=== PATIENT | male | born 1975 | race Caucasian/White ===

== ENCOUNTER 2020-02-02 01:23 | Day surgery (SDC) | payer MEDICAID, OTHER ==
[~2020-02-02] VITALS: Ht 172.7 cm; Wt 118.0 kg
--- NOTE | 2020-02-02 01:49 | NUR ---
PT HERE FOR N/V AND ALL OVER ABD PAIN THAT STARTED TONIGHT. PT DENIES AND MEDICAL PROBLEMS. VSS. WAITING FOR ERP TO EVALUATE. CALL LIGHT IN REACH
[2020-02-02] MEDS ORDERED: ONDANSETRON 2MG/ML, 2ML IVPush ONE (02:00)
[2020-02-02] MEDS ORDERED: MORPHINE SULFATE 4 MG/ML, 1ML IVPush PRN (02:00)
[2020-02-02] MEDS ORDERED: SODIUM CHLORIDE 0.9% 1,000ML IVBOLUS ONE (02:00)
[2020-02-02] MEDS ORDERED: MORPHINE SULFATE 4 MG/ML, 1ML ONE ×2 (02:15→03:59)
[2020-02-02] MEDS ORDERED: ONDANSETRON 2MG/ML, 2ML ONE (02:16)
--- NOTE | 2020-02-02 02:24 | NUR ---
PIV PLACED. PT MEDICATED FOR PAIN AND NAUSEA. PT GIVEN URINAL FOR UA SAMPLE. SPOUSE AT BEDSIDE. CALL LIGHT IN REACH
[2020-02-02 02:36] LABS: BASOPHILS # (AUTO) 0.01 x10^3/uL (0-0.1); BASOPHILS % (AUTO) 0 % (0-1); EOSINOPHILS # (AUTO) 0.11 x10^3/uL (0-0.4); EOSINOPHILS % (AUTO) 1 % (1-7); LYMPHOCYTES # (AUTO) 1.09 x10^3/uL (1-3.4); LYMPHOCYTES % (AUTO) 11 % (22-44); MD NO; MEAN CORPUSCULAR HEMOGLOBIN 30.4 pg (27.5-34.5); MEAN CORPUSCULAR HGB CONC 33.2 g/dL (33.2-36.2); MEAN CORPUSCULAR VOLUME 91.4 fL (81-97); MONOCYTES # (AUTO) 0.35 x10^3/uL (0.2-0.8); MONOCYTES % (AUTO) 3 % (2-9); NEUTROPHILS # (AUTO) 8.66 x10^3/uL (1.8-6.8); NEUTROPHILS % (AUTO) 85 % (42-75); PLATELET COUNT 202 x10^3/uL (130-400); RED BLOOD COUNT 5.05 x10^6/uL (4.38-5.82); RED CELL DISTRIBUTION WIDTH 13.4 % (9.4-14.8)
[2020-02-02 02:38] LABS: ALBUMIN 3.6 g/dL (3.4-5.0); ANION GAP 5 mmol/L (5-15); CALCIUM 8.6 mg/dL (8.5-10.1); CHLORIDE 105 mmol/L (98-107)
[2020-02-02 02:41] LABS: CREATININE 1.37 mg/dL (0.7-1.3)
[2020-02-02 02:42] LABS: ALANINE AMINOTRANSFERASE 47 U/L (12-78); ALKALINE PHOSPHATASE 71 U/L (45-117); BILIRUBIN,TOTAL 0.4 mg/dL (0.2-1.0); TOTAL PROTEIN 7.8 g/dL (6.4-8.2)
[2020-02-02 03:09] LABS: MICROSCOPIC NOT IND
[2020-02-02] MEDS ORDERED: CEFOTETAN PMX 1GM/50ML 50 ML IV ONE (04:00)
[2020-02-02] MEDS ORDERED: SODIUM CHLORIDE 0.9% 1,000 ML IV ONE (04:01)
[2020-02-02] MEDS ORDERED: CEFOTETAN PMX 1GM/50ML 50 ML ONE (04:04)
[2020-02-02] MEDS: MORPHINE SULFATE 4 MG/ML, 1ML IVPush PRN ×2 (04:11→07:58)
--- NOTE | 2020-02-02 04:19 | NUR ---
PT INSTRUCTED AND EDUCATED ABOUT NPO STATUS. PT MEDICATED FOR PAIN PER EEMAR. ANTIBIOTICS STARTED, DR GRIFFITH STATES NO BLOOD CULTURES.
[2020-02-02] MEDS ORDERED: ONDANSETRON 2MG/ML, 2ML IVPush PRN ×2 (04:30→11:30)
[2020-02-02] MEDS ORDERED: OMNIPAQUE 350 MG/ML, 100ML BOTTLE ONE (05:17)
--- NOTE | 2020-02-02 05:20 | NUR ---
REPORT TO CAROLYN REAL
[2020-02-02 06:33] VITALS: BP 140/88
[2020-02-02 07:53] VITALS: BP 140/88
[2020-02-02] MEDS ORDERED: CHLORHEXIDINE 15 ML UDC ONE (09:53)
[2020-02-02] MEDS ORDERED: CHLORHEXIDINE 15 ML UDC MM ONE (10:00)
[2020-02-02] MEDS ORDERED: BUPIVACAINE/EPI 0.5% 1:200K ONE (10:04)
[2020-02-02] MEDS ORDERED: MIDAZOLAM 1 MG/ML, 2ML ONE (10:59)
[2020-02-02] MEDS ORDERED: FENTANYL PF 250 MCG/5ML ONE (10:59)
[2020-02-02] MEDS ORDERED: CEFOTETAN PMX 2GM/50ML 50 ML ONE (11:01)
[2020-02-02] MEDS ORDERED: PROMETHAZINE 25 MG/ML, 1ML IVPush PRN (11:30)
[2020-02-02] MEDS ORDERED: LABETALOL 5MG/ML, 20ML IV PRN (11:30)
[2020-02-02] MEDS ORDERED: hydrALAzine 20 MG/ML, 1ML IV PRN (11:30)
[2020-02-02] MEDS ORDERED: morphine SULFATE 10 MG/ML, 1ML IVPush PRN (11:30)
[2020-02-02] MEDS ORDERED: MEPERIDINE/PF 25MG/0.5ML IVPush PRN (11:30)
[2020-02-02] MEDS ORDERED: HYDROmorphone 1 MG/ML, 1ML INJ IVPush PRN (11:30)
[2020-02-02] MEDS ORDERED: OXYcodone 5 MG/5 ML ORAL.SOL UDC PO PRN (11:30)
[2020-02-02] MEDS ORDERED: FENTANYL PF 100 MCG/2ML IV PRN (11:30)
[2020-02-02] MEDS ORDERED: PROPOFOL 10 MG/ML, 20ML ONE (11:41)
[2020-02-02] MEDS ORDERED: ROCURONIUM 10MG/ML,5ML ONE (11:41)
[2020-02-02] MEDS ORDERED: SUCCINYLCHOLINE 20 MG/ML, 10ML ONE (11:41)
[2020-02-02] MEDS ORDERED: CEFAZOLIN 1,000 MG ONE (11:41)
[2020-02-02] MEDS ORDERED: NEOSTIGMINE 1 MG/ML, 10ML ONE (11:41)
[2020-02-02] MEDS ORDERED: GLYCOPYRROLATE 0.2MG/1ML, 5ML ONE (11:41)
[2020-02-02] MEDS ORDERED: BUPIVACAINE/PF-EPI 0.5% 1:200K INFIL ONE (11:51)
[2020-02-02 12:55] VITALS: BP 120/53
[2020-02-02 12:57] VITALS: BP 120/53
[2020-02-02] MEDS ORDERED: OXYC-302 PO (18:28)
[2020-02-02 18:30] VITALS: BP 116/76
[2020-02-02] MEDS ORDERED: ACETAMINOPHEN 325 MG TABLET PO ONE (19:30)
[2020-02-02 19:50] VITALS: BP 91/57
== END 2020-02-02 20:00 | disposition home or self-care (01) ==
LOC: ED 03:07 → UNDOADMIN 05:01 → OUT 05:01 → EDIP 05:01 → 4NE 05:37 → EDSTATUS 11:16 → OUT 20:00 → UNDODISIN 20:00
PROVIDERS: ATTEND Student in an Organized Health Care Education/Training Program
DX: K35.80 Unspecified acute appendicitis (principal); Z20.828 Contact with and (suspected) exposure to other viral communicable diseases; Z79.891 Long term (current) use of opiate analgesic
CPT/HCPCS: 36415; 44970; 74177; 80053; 81003; 83690; 85025; 87635; 88304; 96374; 96375; 99285; J0330; J0690; J2250; J2270; J2405; J2704; J2710; J3010; J3490; J7030; Q9967; G0378